=== PATIENT | female | born 1995 | race Caucasian/White ===

== ENCOUNTER → 2021-04-15 | Outpatient (CLI) | payer BC ==
--- NOTE | 2021-04-15 14:01 | MR ---
MRI brain without contrast. HISTORY: Family history of neurofibromatosis. Headaches. COMPARISON: None. TECHNIQUE: Multiecho multiplanar images the brain were obtained without contrast. FINDINGS: On the T1-weighted sagittal images, the midline structures including the craniovertebral junction rel ationships are normal. The ventricles, basal cisterns and sulci over the convexities are within normal limits in size and th ere is no mass effect or shift of midline structures. In the left lateral ventricle, there are a few soft tissue nodules arising from the ependyma which co uld represent heterotopic cabrera matter or nodules of tuberous sclerosis. No abnormal signal intensity is seen throughout the brain parenchyma the sensory the diffusion-weight ed images, there is no acute ischemic event in no diffusion restriction. The posterior fossa, including the brainstem, fourth ventricle and cerebellar pontine angles appear n ormal. Intraorbital contents appear normal and symmetric. Visualized paranasal sinuses and mastoid air cells are well aerated. IMPRESSION: A few small ependymal nodules in the left lateral ventricle as described above. No other significant abnormality seen.
== END | disposition home or self-care (01) ==
LOC: RADMRIMAIN 13:05
PROVIDERS: ATTEND Family Medicine
DX: G93.89 Other specified disorders of brain (principal)
CPT/HCPCS: 70551

== ENCOUNTER 2022-03-31 12:57 | Emergency (ER) | payer BC, OTHER ==
[2022-03-31 13:11] VITALS: TEMP 98.1
[2022-03-31] MEDS ORDERED: SODIUM CHLORIDE 0.9% 1,000 ML IV STA (13:39)
[2022-03-31 14:26] LABS: Basophils % (A) 0 %; Eosinophils # (A) 0.1 k/uL (0-0.7); Eosinophils % (A) 1 %; HCT 38.4 % (34.0-46.0); HGB 13.2 gm/dL (11.4-16.0); Lymphocytes # (A) 1.9 k/uL (1.0-4.8); Lymphocytes % (A) 23 %; MCH 30.3 pg (25.0-35.0); MCHC 34.4 g/dL (31.0-37.0); MCV 87.9 fL (80.0-100.0); Mean Platelet Volume 8.1; Monocytes # (A) 0.3 k/uL (0-1.0); Monocytes % (A) 4 %; Neutrophils # (A) 5.6 k/uL (1.3-7.7); Neutrophils % (A) 70 %; Platelet Count 284 k/uL (150-450); RBC 4.37 m/uL (3.80-5.40); RDW 12.7 % (11.5-15.5)
--- NOTE | 2022-03-31 14:32 | XR ---
EXAMINATION TYPE: XR ribs LT w pa chest xray DATE OF EXAM: 03/31/2022 COMPARISON: NONE HISTORY: Chest pain TECHNIQUE: 5 views FINDINGS: Heart and mediastinum are normal. Lungs are clear. Diaphragm is normal. Bony thorax is inta ct. The left ribs are intact. No pleural effusion or pneumothorax. IMPRESSION: Normal chest. Normal left ribs.
[2022-03-31 14:39] LABS: ALT 17 U/L (4-34); AST 18 U/L (14-36); African American GFR (CKD) >90 (>60 ml/min/1.73 sqM); Albumin 4.1 g/dL (3.5-5.0); Alkaline Phosphatase 33 U/L (38-126); Anion Gap 10 mmol/L; Blood Urea Nitrogen 13 mg/dL (7-17); Carbon Dioxide 24 mmol/L (22-30); Chloride 104 mmol/L (98-107); Glucose 137 mg/dL (74-99); INR 0.9 (<1.2); Non-African American GFR(CKD) >90 (>60 ml/min/1.73 sqM); Partial Thromboplastin Time 22.3 sec (22.0-30.0); Potassium 3.7 mmol/L (3.5-5.1); Prothrombin Time 9.8 sec (9.0-12.0); Sodium 138 mmol/L (137-145); Total Bilirubin 0.6 mg/dL (0.2-1.3); Total Protein 6.8 g/dL (6.3-8.2)
--- NOTE | 2022-03-31 14:56 | ED ---
Chest Pain HPI - General Chief Complaint: Chest Pain Stated Complaint: lt sided rib/shoulder pain Time Seen by Provider: 03/31/22 13:16 Source: patient Mode of arrival: ambulatory Limitations: no limitations - History of Present Illness Initial Comments: Patient is an otherwise healthy 26-year-old female who presents to the emergency department with a chief complaint of left rib pain. Patient states 5 days ago she felt a sharp pain just beneath her left breast in her ribs. Patient was working when pain began. The pain radiates to the left side over her rib cage and up through her left chest up to her shoulder. She denies injury. Mild to moderate in severity. Reports worsening of pain with a deep breath. Pain is not influenced by movement. Patient has been taking Motrin and Tylenol with some relief however she became concerned when the pain did not go away. She reports mild shortness of breath. Describes as inability to take a deep breath which she states maybe due to pain. She denies fever, chills, upper respiratory symptoms, cough, palpitations, lightheadedness, dizziness, abdominal pain, nausea, vomiting. Upon questioning patient does report to left calf pain. States she gets somewhat of a similar pain before her menstrual period and will start her and menstrual period next week. She denies leg swelling. Denies history of DVT and PE. Reports family history of PE which includes her mother who at the time had COVID-19. Patient has family history of cardiac disease. No family history of myocardial infarction. She denies tobacco use but does admit to occasional vaping. She takes oral control. She denies recent airplane travel and long car rides. - Related Data Allergies Allergy/AdvReac Type Severity Reaction Status Date / Time shellfish derived [Lobster] Allergy Vomiting Verified 03/31/22 13:06 tree nut Allergy Anaphylaxis Verified 03/31/22 13:06 sulfamethoxazole AdvReac Confusion Verified 03/31/22 13:07 [From Bactrim] trimethoprim [From Bactrim] AdvReac Confusion Verified 03/31/22 13:07 Review of Systems ROS Statement: Those systems with pertinent positive or pertinent negative responses have been documented in the HPI. ROS Other: All systems not noted in ROS Statement are negative. EKG Findings - EKG Comments: EKG Findings:: EKG taken at 13:51. Sinus rhythm, no ST or T-wave changes. Ventricular rate 77. FL interval 140. QRS duration 107. QTC 376 Past Medical History Past Medical History: Asthma Additional Past Medical History / Comment(s): kidney stones History of Any Multi-Drug Resistant Organisms: None Reported Past Surgical History: No Surgical Hx Reported Past Psychological History: ADD/ADHD Smoking Status: Vaper Past Alcohol Use History: Occasional Past Drug Use History: None Reported General Exam Limitations: no limitations General appearance: alert, in no apparent distress Eye exam: Present: normal appearance, PERRL, EOMI. Absent: scleral icterus, conjunctival injection, periorbital swelling Respiratory exam: Present: normal lung sounds bilaterally. Absent: respiratory distress, wheezes, rales, rhonchi, stridor, chest wall tenderness Cardiovascular Exam: Present: regular rate, normal rhythm, normal heart sounds. Absent: systolic murmur, diastolic murmur, rubs, gallop, clicks Extremities exam: Present: normal inspection, full ROM, normal capillary refill. Absent: tenderness, pedal edema, joint swelling, calf tenderness Back exam: Absent: paraspinal tenderness, vertebral tenderness Neurological exam: Present: alert, oriented X3, CN II-XII intact Psychiatric exam: Present: normal affect, normal mood Skin exam: Present: warm, dry, intact, normal color. Absent: rash Course Vital Signs 03/31/22 13:07 Temperature 98.1 F Pulse Rate 105 H Respiratory 16 Rate Blood Pressure 136/86 O2 Sat by Pulse 100 Oximetry Chest Pain MDM - MDM This is a 26-year-old female presenting with left rib pain. Patient well- appearing and in no apparent distress. No hypoxia or tachycardia. Rib and chest pain is not reproducible with palpation. Negative Homans sign of the left lower extremity EKG shows sinus rhythm with no ST segment or T-wave abnormalities. Laboratory studies obtained. There is no leukocytosis. Troponin and d-dimer are within normal limits. COVID-19 is not detected. Chest and left rib x-ray is negative for acute process. Ultrasound with Doppler of left lower extremity is negative for DVT. Results discussed with patient. I have suspicion that patient has left sided pleurisy. We discussed this in detail. Patient will be discharged with paper indomethacin prescription. She does not have insurance and she was reassured that other anti-inflammatories can be used for this diagnosis if the prescription is too expensive. Return parameters discussed. Patient to follow- up with primary care provider. Dr. Man is my attending. Disposition Clinical Impression: Pleurisy, Rib pain, Shortness of breath Disposition: HOME SELF-CARE Condition: Good Instructions (If sedation given, give patient instructions): Pleurisy (ED) Additional Instructions: Take indomethacin as directed. If prescription is too expensive without insurance, take [id number] Motrin. Follow-up with primary care provider in one to 2 days. Return to the emergency department experience new, concerning, or worsening symptoms Is patient prescribed a controlled substance at d/c from ED?: No Referrals: Deedee Ireland MD [Primary Care Provider] - 1-2 days Time of Disposition: 15:16
--- NOTE | 2022-03-31 15:00 | US ---
EXAMINATION TYPE: US venous doppler duplex LE LT DATE OF EXAM: 03/31/2022 2:53 PM COMPARISON: NONE CLINICAL HISTORY: leg pain. pain from knee to ankle on the left, no h/o dvt, no swelling SIDE PERFORMED: Left TECHNIQUE: The lower extremity deep venous system is examined utilizing real time linear array sonog lynn with graded compression, doppler sonography and color-flow sonography. VESSELS IMAGED: Common Femoral Vein Deep Femoral Vein Greater Saphenous Vein * Femoral Vein Popliteal Vein Small Saphenous Vein * Proximal Calf Veins (* superficial vessels) Left Leg: Negative for DVT IMPRESSION: No evidence of deep vein thrombosis in the left leg.
[2022-03-31 15:48] VITALS: BP 116/91; PULSE 80; RESP 18
== END 2022-03-31 15:56 | disposition home or self-care (01) ==
LOC: EC 12:57
DX: M25.519 Pain in unspecified shoulder (principal); R09.1 Pleurisy; J45.909 Unspecified asthma, uncomplicated; F17.290 Nicotine dependence, other tobacco product, uncomplicated; F90.9 Attention-deficit hyperactivity disorder, unspecified type; Z91.013 Allergy to seafood; Z91.018 Allergy to other foods; Z88.2 Allergy status to sulfonamides; Z79.899 Other long term (current) drug therapy
CPT/HCPCS: 36415; 80053; 83735; 84484; 85025; 85379; 85610; 85730; 87635; 93005; 96360; 96361; 99285

== ENCOUNTER 2024-04-23 06:49 | Emergency (ER) | payer BC ==
[2024-04-23 06:58] VITALS: TEMP 97.6
--- NOTE | 2024-04-23 07:17 | ED ---
Headache HPI - General Chief Complaint: Headache Stated Complaint: headache Time Seen by Provider: 04/23/24 06:57 Source: patient, RN notes reviewed Mode of arrival: ambulatory Limitations: no limitations - History of Present Illness Initial Comments: This is a 28-year-old female who presents to the emergency department for a headache. Patient states that 3 days ago she gradually started to develop a headache that has since persisted. She gets only mild and temporary relief with ibuprofen. Pain has started to settle in the base of her skull and neck area. The headache was initially diffuse but seems to now be worse on the left side. Denies any visual changes. She has mild nausea and photophobia. She has had headaches before, but never anything like this. States that she is concerned because she has a family history of brain tumors and aneurysms and wants to make sure that is not what is going on. MD Complaint: headache - Related Data Home Medications Medication Instructions Recorded Confirmed Ascorbic Acid [Vitamin C] 500 mg PO DAILY 04/23/24 04/23/24 Cetirizine HCl [Zyrtec] 20 mg PO HS 04/23/24 04/23/24 Cholecalciferol [Vitamin D3 (25 25 mcg PO HS 04/23/24 04/23/24 Mcg = 1000 Iu)] Dextroamphetamine/Amphetamine 20 mg PO DAILY 04/23/24 04/23/24 [Adderall Xr 20 mg Capsule] Dextroamphetamine/Amphetamine 10 mg PO PC-LUNCH 04/23/24 04/23/24 [Adderall] ISOtretinoin [Accutane] 30 mg PO BID 04/23/24 04/23/24 L.acidoph,Paracasei, B.lactis 1 cap PO HS 04/23/24 04/23/24 [Probiotic] Magnesium Glycinate 1 tab PO HS 04/23/24 04/23/24 Magnesium Oxide [Mag-Ox] 400 mg PO DAILY 04/23/24 04/23/24 Omeprazole [PriLOSEC] 20 mg PO DAILY 04/23/24 04/23/24 Vitamin B Complex 1 cap PO HS 04/23/24 04/23/24 norethindrone-e.estradioL-iron 1 tab PO DAILY 04/23/24 04/23/24 [Junel Fe 1 mg-20 Mcg Tablet] Previous Rx's Medication Instructions Recorded Ketorolac [Toradol] 10 mg PO Q6HR PRN #15 tab 04/23/24 Ondansetron Odt [Zofran Odt] 4 mg PO Q8HR PRN #20 tab 04/23/24 methocarbamoL [Robaxin-750] 1,500 mg PO TID PRN #30 tab 04/23/24 Allergies Allergy/AdvReac Type Severity Reaction Status Date / Time shellfish derived [Lobster] Allergy Vomiting Verified 04/23/24 10:25 tree nut Allergy Anaphylaxis Verified 04/23/24 10:25 sulfamethoxazole AdvReac Confusion Verified 04/23/24 10:25 [From Bactrim] trimethoprim [From Bactrim] AdvReac Confusion Verified 04/23/24 10:25 Review of Systems ROS Statement: Those systems with pertinent positive or pertinent negative responses have been documented in the HPI. ROS Other: All systems not noted in ROS Statement are negative. Past Medical History Past Medical History: Asthma Additional Past Medical History / Comment(s): kidney stones History of Any Multi-Drug Resistant Organisms: None Reported Past Surgical History: No Surgical Hx Reported Past Psychological History: ADD/ADHD Smoking Status: Never smoker, Vaper Past Alcohol Use History: Occasional Past Drug Use History: None Reported General Exam Limitations: no limitations General appearance: alert, in no apparent distress Head exam: Present: atraumatic, normocephalic, normal inspection Eye exam: Present: normal appearance, PERRL, EOMI. Absent: scleral icterus, conjunctival injection, periorbital swelling Respiratory exam: Present: normal lung sounds bilaterally. Absent: respiratory distress, wheezes, rales, rhonchi, stridor Cardiovascular Exam: Present: regular rate, normal rhythm, normal heart sounds. Absent: systolic murmur, diastolic murmur, rubs, gallop, clicks Neurological exam: Present: alert, oriented X3, CN II-XII intact Psychiatric exam: Present: normal affect, normal mood Skin exam: Present: warm, dry, intact, normal color. Absent: rash Course Vital Signs 04/23/24 04/23/24 04/23/24 06:51 09:11 10:32 Temperature 97.6 F Pulse Rate 95 87 91 Respiratory 18 16 18 Rate Blood Pressure 145/99 125/87 123/90 O2 Sat by Pulse 100 100 96 Oximetry Medical Decision Making - Medical Decision Making This is a 28 year old female who presents to the emergency department for a headache. Was pt. sent in by a medical professional or institution? @ -No Did you speak to anyone other than the patient for history? @ -No Did you review nursing and triage notes? @ -Yes, and I agree, it is accurate with regards to the patient's symptoms. Were old charts reviewed? @ -No Differential Diagnosis? @ -Differential Headache: Migraine, tension, cluster, carbon monoxide, central venous thrombosis, pension karma temporal arteritis, acute closure glaucoma, intercranial hemorrhage, mastoiditis, sinusitis, head injury, this is not meant to be an all-inclusive list. EKG interpreted by me (3pts min.)? @ -Not obtained X-rays interpreted by me (1pt min.)? @ -Not obtained CT interpreted by me (1pt min.)? @ -CT scan of the brain obtained. My interpretation identifies no evidence of an acute intracranial hemorrhage. CTA of the head and neck obtained. My interpretation identifies no evidence of an aneurysm. U/S interpreted by me (1pt. min.)? @ -Not obtained What testing was considered but not performed? (CT, X-rays, U/S, labs)? Why? @ -None What meds were considered but not given? Why? @ -None Did you discuss the management of the patient with other professionals? @ -No Did you reconcile home meds? @ -No Was smoking cessation discussed for >3mins.? @ -No Was critical care preformed (if so, how long)? @ -No Were there social determinants of health that impacted care today? How? ( Homelessness, low income, unemployed, alcoholism, drug addiction, transportation, low edu. Level, literacy, decrease access to med. care, [facility], rehab)? @ -No Was there de-escalation of care discussed even if they declined? (Discuss DNR or withdrawal of care, Hospice)? @ -No What co-morbidities impacted this encounter? (DM, HTN, Smoking, COPD, CAD, Cancer, CVA, Hep., AIDS, mental health diagnosis, sleep apnea, morbid obesity)? @ -None Was patient admitted / discharged? @ -Discharged. Lab work unremarkable. CT scan of the brain and CTA of the head and neck obtained revealing no acute process. She was treated with a migraine cocktail consisting of IV fluids, Toradol, Decadron, Benadryl, and Compazine. She had improvement in symptoms afterwards. Prescription for Toradol, Zofran, and Robaxin provided for further symptomatic management. Otherwise advised follow-up with her PCP. Patient discharged home in stable condition. Case discussed with ED attending Dr. Henao. Return precautions reviewed in depth, the patient is instructed to return to the emergency department with any new, worsening, or concerning symptoms. Patient verbalized understanding. Undiagnosed new problem with uncertain prognosis? @ -None Drug Therapy requiring intensive monitoring for toxicity (Heparin, Nitro, Insulin, Cardizem)? @ -None Were any procedures done? @ -None Diagnosis/symptom? @ -Headache Acute, or Chronic, or Acute on Chronic? @ -Acute Uncomplicated (without systemic symptoms) or Complicated (systemic symptoms)? @ -Uncomplicated Side effects of treatment? @ -None Exacerbation, Progression, or Severe Exacerbation] @ -Not applicable Poses a threat to life or bodily function? @ -No - Lab Data Result diagrams: 04/23/24 07:48 04/23/24 07:48 Lab Results 04/23/24 04/23/24 04/23/24 Range/Units 07:48 07:48 07:48 WBC 5.4 (3.8-10.6) k/uL RBC 4.62 (3.80-5.40) m/uL Hgb 13.4 (11.4-16.0) gm/dL Hct 41.2 (34.0-46.0) % MCV 89.2 (80.0-100.0) fL MCH 29.0 (25.0-35.0) pg MCHC 32.5 (31.0-37.0) g/dL RDW 12.6 (11.5-15.5) % Plt Count 254 (150-450) k/uL MPV 7.6 Neutrophils % 60 % Lymphocytes % 32 % Monocytes % 4 % Eosinophils % 2 % Basophils % 0 % Neutrophils # 3.2 (1.3-7.7) k/uL Lymphocytes # 1.7 (1.0-4.8) k/uL Monocytes # 0.2 (0-1.0) k/uL Eosinophils # 0.1 (0-0.7) k/uL Basophils # 0.0 (0-0.2) k/uL Sodium 139 (137-145) mmol/L Potassium 4.3 (3.5-5.1) mmol/L Chloride 105 (98-107) mmol/L Carbon Dioxide 27 (22-30) mmol/L Anion Gap 7 mmol/L BUN 15 (7-17) mg/dL Creatinine 0.85 (0.52-1.04) mg/dL Est GFR (CKD-EPI)AfAm >90 (>60 ml/min/1.73 sqM) Est GFR (CKD-EPI)NonAf >90 (>60 ml/min/1.73 sqM) Glucose 88 (74-99) mg/dL Calcium 9.5 (8.4-10.2) mg/dL Magnesium 2.3 (1.6-2.3) mg/dL Total Bilirubin 0.4 (0.2-1.3) mg/dL AST 28 (14-36) U/L ALT 21 (4-34) U/L Alkaline Phosphatase 51 (38-126) U/L Total Protein 7.6 (6.3-8.2) g/dL Albumin 4.3 (3.5-5.0) g/dL HCG, Qual Not Detected - Radiology Data Radiology results: report reviewed, image reviewed Disposition Clinical Impression: Headache, Neck pain Disposition: HOME SELF-CARE Instructions (If sedation given, give patient instructions): Acute Headache (ED) Additional Instructions: Return to the emergency department with any new, worsening, or concerning symptoms. Take the Toradol with Tylenol as needed for pain relief. If you choose to take the Toradol, do not take any other anti-inflammatories such as ibuprofen, take one or the other. Take the Robaxin as 1 to 2 tablets up to 3-4 times daily. This will be more so for the neck pain and tightness. Take the Zofran up to every 8 hours as needed for nausea and vomiting. Follow up with your primary care provider in 1-2 days. Prescriptions: methocarbamoL [Robaxin-750] 1,500 mg PO TID PRN #30 tab PRN Reason: Pain Ketorolac [Toradol] 10 mg PO Q6HR PRN #15 tab PRN Reason: Pain Ondansetron Odt [Zofran Odt] 4 mg PO Q8HR PRN #20 tab PRN Reason: Nausea And Vomiting Is patient prescribed a controlled substance at d/c from ED?: No Referrals: Lilliana Henao DO [Primary Care Provider] - 1-2 days Time of Disposition: 09:46
[2024-04-23] MEDS: SODIUM CHLORIDE 0.9% 1,000 ML IV STA (07:56)
[2024-04-23] MEDS: KETOROLAC 15 MG/ML 1 ML VIAL IVP STA (07:57)
[2024-04-23] MEDS: diphenhydrAMINE 50 MG/ML 1 ML VIAL IVP STA (07:58)
[2024-04-23] MEDS: PROCHLORPERAZINE INJ 10 MG/2 ML VIAL IVP STA (08:02)
[2024-04-23] MEDS: DEXAMETHASONE SOD PHOSPHATE 10 MG/ML 1 ML VIAL IVP STA (08:05)
[2024-04-23 08:12] LABS: Basophils % (A) 0 %; Eosinophils # (A) 0.1 k/uL (0-0.7); Eosinophils % (A) 2 %; HCT 41.2 % (34.0-46.0); HGB 13.4 gm/dL (11.4-16.0); Lymphocytes # (A) 1.7 k/uL (1.0-4.8); Lymphocytes % (A) 32 %; MCHC 32.5 g/dL (31.0-37.0); MCV 89.2 fL (80.0-100.0); Mean Platelet Volume 7.6; Monocytes # (A) 0.2 k/uL (0-1.0); Monocytes % (A) 4 %; Neutrophils # (A) 3.2 k/uL (1.3-7.7); Neutrophils % (A) 60 %; Platelet Count 254 k/uL (150-450); RBC 4.62 m/uL (3.80-5.40); RDW 12.6 % (11.5-15.5); WBC 5.4 k/uL (3.8-10.6)
[2024-04-23 08:34] LABS: ALT 21 U/L (4-34); AST 28 U/L (14-36); African American GFR (CKD) >90 (>60 ml/min/1.73 sqM); Albumin 4.3 g/dL (3.5-5.0); Alkaline Phosphatase 51 U/L (38-126); Anion Gap 7 mmol/L; Blood Urea Nitrogen 15 mg/dL (7-17); Calcium 9.5 mg/dL (8.4-10.2); Carbon Dioxide 27 mmol/L (22-30); Chloride 105 mmol/L (98-107); Glucose 88 mg/dL (74-99); Magnesium 2.3 mg/dL (1.6-2.3); Non-African American GFR(CKD) >90 (>60 ml/min/1.73 sqM); Potassium 4.3 mmol/L (3.5-5.1); Sodium 139 mmol/L (137-145); Total Bilirubin 0.4 mg/dL (0.2-1.3); Total Protein 7.6 g/dL (6.3-8.2)
--- NOTE | 2024-04-23 08:57 | CT ---
EXAMINATION TYPE: CT brain wo con DATE OF EXAM: 04/23/2024 8:50 AM COMPARISON: None. CLINICAL INDICATION: Female, 28 years old with history of Headache, headache,dizziness, pt states she s on medication that makes her have headaches TECHNIQUE: CT of the brain is performed utilizing 3 mm thick sections through the posterior fossa and 3 mm thick sections through the remaining calvarium. Study is performed within 24 hours of arrival to the hospital. Contrast used: mL of , (none if empty) CT DLP: 1088 mGycm, Automated exposure control for dose reduction was used. FINDINGS: No abnormal hyperdensity is present to suggest an acute intracranial hemorrhage. No mass lesion is evident. No acute infarcts are evident. Ventricles and sulci are appropriate for the patient age. Paranasal sinuses and mastoid air cells within the [id number]-we-meuf are clear. IMPRESSION: 1. No acute intracranial process. Follow up MRI can be performed as clinically indicated. [facility], , 04/23/2024 8:55 AM
--- NOTE | 2024-04-23 09:36 | CT ---
EXAMINATION TYPE: CT angio head neck DATE OF EXAM: 04/23/2024 8:52 AM COMPARISON: . CLINICAL INDICATION: Female, 28 years old with history of Headache; PHH, headache,dizziness, pt state s shes on medication that makes her have headaches TECHNIQUE: Axially acquired helical CT angiogram of the head and neck was obtained with contrast. Axi al images are supplemented with 3D reconstructions and MIP images which were post-processed at an in dependent workstation. NASCET criteria used. Contrast used:65 mL of Isovue 370 with IV Contrast, Oral contrast used: None. CT DLP: 511.7 mGycm, Automated exposure control for dose reduction was used. FINDINGS: CTA HEAD: No evidence of acute intracranial hemorrhage, mass effect, or midline shift. The ventricles, sulci, a nd cisterns are unremarkable. Vertebral arteries: The vertebral arteries are patent. Vertebral artery dominance: Codominant Basilar artery: The basilar artery is intact. The basilar artery bifurcation is normal. Internal Carotid arteries: The cervical, petrous, cavernous and supraclinoid segments are normal. JEWELL: Patent with no evidence of aneurysm. ACOM: Present without evidence of aneurysm. MCA: Patent with no evidence of aneurysm. [employer]: Patent with no evidence of aneurysm. PCOM: Hypoplastic bilaterally. Dural sinuses: Patent. CTA NECK: Right Carotid System: The common carotid artery and external carotid artery are patent. The carotid bifurcation demonstrate s no evidence of hemodynamically significant stenosis. The remaining portions of the internal carotid artery demonstrate normal size without significant narrowing. Left Carotid System: The common carotid artery and external carotid artery are patent. The carotid bifurcation demonstrate s no evidence of hemodynamically significant stenosis. The remaining portions of the internal carotid artery demonstrate normal size without significant narrowing. Vertebral arteries are patent without evidence hemodynamically significant stenosis. There is a three-vessel aortic arch. The origins of the great vessels are patent. No evidence of hemo dynamically significant stenosis. IMPRESSION: 1. No evidence of dissection of the cervical internal carotid arteries or vertebral arteries. 2. No any evidence of significant stenosis at the carotid bifurcations. 3. No evidence of intracranial high-grade stenosis or intracranial aneurysm. [facility], , 04/23/2024 9:34 AM
[2024-04-23 10:32] VITALS: BP 123/90; PULSE 91; RESP 18
== END 2024-04-23 10:32 | disposition home or self-care (01) ==
LOC: EC 06:49
DX: R51.9 Headache, unspecified (principal); M54.2 Cervicalgia; F17.290 Nicotine dependence, other tobacco product, uncomplicated; Z91.013 Allergy to seafood; Z88.2 Allergy status to sulfonamides; Z88.1 Allergy status to other antibiotic agents; Z91.018 Allergy to other foods
CPT/HCPCS: 36415; 80053; 83735; 85025; 84703; 70496; 70450; 70498; 99284; 96374; 96375 ×3; 96361; J1200; J0780; J1100; J1885; Q9967

== ENCOUNTER → 2024-07-11 | Outpatient (CLI) | payer BC ==
[2024-07-12 06:46] LABS: HCT 41.9 % (37.2-46.3); HGB 13.4 g/dL (12.0-15.0); MCH 28.8 pg (27.0-32.0); MCV 90.1 FL (80.0-97.0); Mean Platelet Volume 11.3 FL (9.5-12.2); NRBC Per 100 WBC 0 X 10*3/uL (0.00-0.01); Platelet Count 363 X 10*3/uL (140-440); RBC 4.65 X 10*6/uL (4.10-5.20); RDW 12.9 % (11.5-14.5); WBC 8.48 X 10*3/uL (4.50-10.00)
[2024-07-12 09:53] LABS: AST 22 U/L (13-35); BUN/Creat Ratio 13.67 Ratio (12.00-20.00); Blood Urea Nitrogen 12.3 mg/dL (9.0-27.0); Calcium 9.7 mg/dL (8.7-10.3); Chloride 104 mmol/L (96-109); Chol/HDL Ratio 3.52 Ratio; Glucose 145 mg/dL (70-110); LDL Cholesterol,Calculated 131.1 mg/dL (0.0-131.0); Potassium 3.6 mmol/L (3.5-5.5); Sodium 139 mmol/L (135-145)
[2024-07-12 09:54] LABS: ALT 21 U/L (8-44); Albumin 4.4 g/dL (3.8-4.9); Albumin/Globulin Ratio 1.29 Ratio (1.60-3.17); Alkaline Phosphatase 67 U/L (41-126); Globulin 3.4 g/dL (1.6-3.3); T4, Free (Free Thyroxine) 1.03 ng/dL (0.80-1.80); Total Bilirubin 0.2 mg/dL (0.3-1.2); Total Protein 7.8 g/dL (6.2-8.2)
== END | disposition home or self-care (01) ==
LOC: LABWHC1 11:47
PROVIDERS: ATTEND Family Medicine
DX: Z00.00 Encounter for general adult medical examination without abnormal findings (principal); Z13.220 Encounter for screening for lipoid disorders; R73.01 Impaired fasting glucose; R63.5 Abnormal weight gain; R53.83 Other fatigue
CPT/HCPCS: 36415; 80053; 80061; 83036; 84439; 84443; 84481; 85027

== ENCOUNTER → 2024-07-14 | Outpatient (CLI) | payer BC ==
[2024-07-14 19:25] LABS: Hepatitis B Surface Antigen Nonreactive (Nonreactive); Hepatitis C IgG Antibody Nonreactive (Nonreactive)
[2024-07-14 20:43] LABS: Hepatitis B Surface AB- Quant 3.5 mIU/mL
== END | disposition home or self-care (01) ==
LOC: LABWHC1 14:58
PROVIDERS: ATTEND Dermatology Procedural Dermatology
DX: L73.2 Hidradenitis suppurativa (principal); K13.0 Diseases of lips; M79.10 Myalgia, unspecified site; L85.3 Xerosis cutis; Z79.899 Other long term (current) drug therapy
CPT/HCPCS: 36415; 86480; 86704; 86706; 86803; 87340

== ENCOUNTER → 2024-12-18 | Outpatient (CLI) | payer BC ==
--- NOTE | 2024-12-19 15:32 | MR ---
INDICATION: Patient age:Female; 29 years old; Reason for study: Z82.79 FAM HX OF CONGEN MAL R51.9 HEADACHE, UNSPEC; PHH. COMPARISON: MRI brain 04/15/2021, CT brain 04/23/2024, CTA head and neck 04/23/2024. TECHNIQUE: Multi planar, multi sequence imaging was performed through the brain. The patient was then given 9 cc of Gadobutrol intravenously and multi planar, T1 fat-saturation images were obtained. FINDINGS: The cabrera-white junctions and basal cisterns appear unremarkable. Age-appropriate cerebral parenchymal volume. Diffusion-weighted imaging shows no evidence of restricted diffusion to suggest acute/subacu te infarct. Intracranial arterial flow voids are maintained. Midline structures show no abnormality. No FLAIR signal abnormalities. The susceptibility weighted images do not reveal any evidence for micr o-hemorrhage. After administration of gadolinium, no abnormal enhancement is seen. No hydrocephalus. There are 2 stable left lateral ventricle body soft tissue nodules along the ependyma measuring up to 3 mm. No enhancement. The bone marrow signal is within normal limits. The paranasal sinuses and globes are unremarkable. IMPRESSION: 1. No evidence of acute/subacute infarct or abnormal enhancement. 2. There are 2 stable small left lateral ventricle body ependymal nodules. Etiologies include hetero topic cabrera matter or nodules of tuberous sclerosis versus other. [facility], , 12/19/2024 3:30 PM
== END | disposition home or self-care (01) ==
LOC: RADMRIMAIN 18:00
PROVIDERS: ATTEND Family Medicine
DX: R51.9 Headache, unspecified (principal); Z82.79 Family history of other congenital malformations, deformations and chromosomal abnormalities
CPT/HCPCS: 70553; A9585